=== PATIENT | female | born 1985 | race Caucasian/White ===

== ENCOUNTER 2018-03-16 18:21 | Emergency (ER) | payer BC, OTHER ==
[2018-03-16 18:40] VITALS: BP 112/70
--- NOTE | 2018-03-16 19:09 | RAD ---
HISTORY: Pain at base of left thumb, volleyball injury COMPARISONS: None VIEWS: 5, frontal and oblique views of the left hand with frontal, lateral, and oblique views of the first digit of the left hand FINDINGS: BONE DENSITY: Normal. BONES: There is no displaced fracture. JOINTS: There is no arthropathy. ALIGNMENT: There is no dislocation. SOFT TISSUES: Unremarkable. OTHER FINDINGS: None. IMPRESSION: NO ACUTE OSSEOUS INJURY. IF SYMPTOMS PERSIST, RECOMMEND REPEAT IMAGING.
--- NOTE | 2018-03-16 19:33 | UC ---
Upper Extremity HPI - HPI Summary HPI Summary: Patient presents with complaints of discomfort at the base of her left thumb. Patient states she was playing volleyball and 03/15/18. Patient does not recall a specific injury. 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 Patient states certain movements she feels radiation to her wrist and towards her elbow. Patient denies elbow pain or shoulder pain. Patient took 1 dose of analgesia with relief. Patient is right-hand dominant. Patient's medications reviewed this visit. - History of Current Complaint Chief Complaint: UCUpperExtremity Stated Complaint: THUMB,HAND INJURY Time Seen by Provider: 03/16/18 19:27 Hx Obtained From: Patient Hx Last Menstrual Period: 3 WEEKS AGO ?: No Onset/Duration: Gradual Onset, Lasting Days Pain Intensity: 6 - Allergies/Home Medications Allergies/Adverse Reactions: Allergies Allergy/AdvReac Type Severity Reaction Status Date / Time No Known Allergies Allergy Verified 03/16/18 18:40 Home Medications: Home Medications NK [No Home Medications Reported] 03/16/18 [History Confirmed 03/16/18] PMH/Surg Hx/FS Hx/Imm Hx Previously Healthy: Yes - Surgical History Surgical History: Yes Surgery Procedure, Year, and Place: T & A, APPENDECTOMY - Social History Occupation: Employed Full-time Lives: With Family Alcohol Use: Occasionally Substance Use Type: None Smoking Status (MU): Never Smoked Tobacco Review of Systems Constitutional: Negative Skin: Bruising - base left thumb Musculoskeletal: Other: - thumb All Other Systems Reviewed And Are Negative: Yes Physical Exam - Summary Physical Exam Summary: Vital Signs Reviewed: Yes A+Ox3, no distress Eyes: Conjunctiva Clear, SOLANGE. EOM intact and full ENT: Hearing grossly normal TM x 2 clear, mmoist, uvula midline, no exudate, no erythema Neck: Positive: Supple Respiratory: Positive: No respiratory distress, No accessory muscle use + CTA throughout no w/r Cardiovascular: RRR nl s1, s2 no m/r CBT <2 sec abd soft + BS nt/nd no guarding, no distension Musculoskeletal Exam: ARAUZ x 4 without difficulty Strength Intact, no snuff box pain + flex/ext wrist + flex/ext/abduct/adduct/oponen thumb with discomfort at base + flex/ext mcp, IP with discomfort with flexionn no laxity lateral joint testing Neurological: Positive: Alert, + sensation throughout Psychological: Positive: Normal Response To Family Skin: Positive: no rash, mild ecchymosis dorsum base thumb no ecchymosis or edema thenar eminence Triage Information Reviewed: Yes Vital Signs: Initial Vital Signs Temp 97.9 F 03/16/18 18:37 Pulse 70 03/16/18 18:37 Resp 16 03/16/18 18:37 BP 112/70 03/16/18 18:37 Pulse Ox 100 03/16/18 18:37 Diagnostics - Radiology No standard instances Xray Interpretation: No Acute Changes Radiology Interpretation Completed By: Radiologist - Patient Name: KATHRYN GAMBOA Medical Record#: [id number] Ordering Physician: Slime Slaughter MD Acct.#: [id number] : 1985 Age: 32 Sex: F Location: [facility] Exam Date: 03/16/18 184 ADM Status: REG ER Order Information: THUMB LEFT Accession Number: [id number] CPT: 82965 HISTORY: Pain at base of left thumb, volleyball injury COMPARISONS: None VIEWS: 5, frontal and oblique views of the left hand with frontal, lateral, and oblique views of the first digit of the left hand FINDINGS: BONE DENSITY: Normal. BONES: There is no displaced fracture. JOINTS: There is no arthropathy. ALIGNMENT: There is no dislocation. SOFT TISSUES: Unremarkable. OTHER FINDINGS: None. IMPRESSION: NO ACUTE OSSEOUS INJURY. IF SYMPTOMS PERSIST, RECOMMEND REPEAT IMAGING. <Electronically signed by Nelson Brown MD in OV> 03/16/181904 Dictated By: Nelson Brown MD Dictated Date/Time: 03/16/181904 Transcribed Date/Time: 03/16/181903 Copy to: CC: [facility]; Slime Slaughter MD; Osmany Underwood MD Imaging - [facility] - [facility] - [facility] [address] [address] ph ([phone]) ph ) ph ([phone]) 1 of 1 Upper Extremity Course/Dx - Course Course Of Treatment: Pt with discomfort base thumb after striking in flexion playing volleyball 2 days ago. pain increases with movement. imaging neg. thumb spica. motrin/apap. ice. elevate. ortho f/u. declined work note - Differential Dx/Diagnosis Provider Diagnoses: thumb sprain Discharge - Sign-Out/Discharge Documenting (check all that apply): Discharge/Admit/Transfer - Discharge Plan Condition: Stable Disposition: HOME Patient Education Materials: Finger Sprain (ED) Referrals: Osmany Hays MD [Medical Doctor] - Osmany Underwood MD [Primary Care Provider] - Additional Instructions: - wear thumb splint as much as possible until you are evaluated in follow-up - Okay to alternate ibuprofen (Advil, Motrin) and Tylenol every 3 hours for pain. Take with food. Do NOT take for more than 4-5 days. - ice your thumb, 20 minutes at a time, 2-3 times a day for pain - elevate your hand for swelling and pain - contact the orthopedic surgeon tomorrow to schedule a follow-up appointment. Contact the orthopedic surgeon, your doctor or return here with questions or concerns - Billing Disposition and Condition Condition: STABLE Disposition: HOME
== END 2018-03-16 19:50 | disposition home or self-care (01) ==
LOC: UCEAST 18:21
DX: S63.602A Unspecified sprain of left thumb, initial encounter (principal); X58.XXXA Exposure to other specified factors, initial encounter; Y93.68 Activity, volleyball (beach) (court); Y92.39 Other specified sports and athletic area as the place of occurrence of the external cause
CPT/HCPCS: 99202; G0463